=== PATIENT | female | born 1960 | race African-American/Black ===

== ENCOUNTER 2020-01-14 07:55 | Outpatient (CLI) | payer OTHER | END 2020-01-14 07:56 | disposition critical access hospital (66) | LOC: EMS 07:55 | PROVIDERS: ATTEND Surgery | DX: R51 Headache (principal); R03.0 Elevated blood-pressure reading, without diagnosis of hypertension | CPT/HCPCS: A0425; A0429 ==

== ENCOUNTER 2020-01-14 08:13 | Emergency (ER) | payer OTHER ==
[2020-01-14] MEDS ORDERED: SODIUM CHLORIDE 0.9% 1,000 ML IV STA (08:24)
[2020-01-14] MEDS ORDERED: PROCHLORPERAZINE 10 MG/2 ML VIAL IVP STA (08:24)
[2020-01-14] MEDS ORDERED: MORPHINE 2 MG/ML CARPUJECT IVP STA (08:25)
[2020-01-14] MEDS ORDERED: KETOROLAC 15 MG/ML VIAL IVP STA (08:26)
--- NOTE | 2020-01-14 08:27 | ED Physician Documentation ---
PD HPI HEADACHE - Stated complaint Stated Complaint: HUGO - History obtained from History obtained from: Patient, EMS - History of Present Illness Timing - onset: How many hours ago (1), Today Timing - onset during: Rest Timing - duration: Hours (1) Timing - details: Abrupt onset, Still present, Waxing and waning Worst headache ever?: Worst headache ever? (yes) Location: Back Quality: Thunderclap Associated symptoms: Nausea, Vision changes (blurred). No: Fever, Stiff neck, Weakness, Numbness Worsened by: Noise Contributing factors: Hypertension. No: Possible carbon monoxide, Recent illness, Trauma Similar symptoms before: Has not had sx before Recently seen: Not recently seen Review of Systems Constitutional: denies: Fever Nose: denies: Rhinorrhea / runny nose, Congestion Throat: denies: Sore throat Respiratory: denies: Cough Neurologic: denies: Focal weakness, Headache, Head injury PD PAST MEDICAL HISTORY - Past Medical History Cardiovascular: Hypertension (not consistent with her meds) Respiratory: None Neuro: None Endocrine/Autoimmune: None GI: None - Allergies Allergies/Adverse Reactions: Allergies Allergy/AdvReac Type Severity Reaction Status Date / Time Penicillins Allergy Unknown Verified 01/14/20 08:33 Sulfa (Sulfonamide Allergy Unknown Verified 01/14/20 08:33 Antibiotics) PD ED PE NORMAL - Vitals Vital signs reviewed: Yes (hypertensive) - General General: Alert and oriented X 3 (somnolent and uncomfortable), Well developed/nourished, Other - HEENT HEENT: PERRL, EOMI (some light sensitivity) - Neck Neck: Supple, no meningeal sign, No adenopathy - Cardiac Cardiac: RRR, No murmur - Respiratory Respiratory: Clear bilaterally - Abdomen Abdomen: Soft, Non tender - Female Female : Deferred - Rectal Rectal: Deferred - Derm Derm: Normal color, Warm and dry - Extremities Extremities: No tenderness to palpate, Normal ROM s pain, No edema - Neuro Neuro: Alert and oriented X 3 Eye Opening: To Voice Motor: Obeys Commands Verbal: Oriented GCS Score: 14 - Psych Psych: Normal mood. No: Normal affect (somewhat flat) Results - Vitals Vitals: Vital Signs - 24 hr 01/14/20 01/14/20 01/14/20 08:15 09:30 10:28 Temperature 36.4 C L Heart Rate 62 59 L 56 L Respiratory 18 18 14 Rate Blood Pressure 168/85 H 185/96 H 190/104 H O2 Saturation 97 99 100 Oxygen O2 Source Room air - Labs Labs: Laboratory Tests 01/14/20 01/14/20 01/14/20 08:34 08:34 08:34 WBC 4.8 RBC 4.38 Hgb 13.4 Hct 39.9 MCV 91.1 MCH 30.6 MCHC 33.6 RDW 12.9 Plt Count 223 MPV 10.1 Neut # (Auto) 2.9 Lymph # (Auto) 1.4 L Weak[place] # (Auto) 0.4 Eos # (Auto) 0.1 Baso # (Auto) 0.0 Absolute Nucleated RBC 0.00 Nucleated RBC % 0.0 ESR 8 Sodium 136 Potassium 3.2 L Chloride 101 Carbon Dioxide 25 Anion Gap 10.0 BUN 14 Creatinine 0.7 Estimated GFR (MDRD) 86 L Glucose 127 H Calcium 9.0 Total Bilirubin 0.5 AST 25 ALT 22 Alkaline Phosphatase 72 Total Protein 7.3 Albumin 4.2 Globulin 3.1 Albumin/Globulin Ratio 1.4 Lipase 37 PD MEDICAL DECISION MAKING - ED course Complexity details: re-evaluated patient (Patient was given Compazine for nausea and hopefully to help with the headache. Also low-dose of Toradol. She declined morphine. Subsequently given IV acetaminophen. Her blood pressure was elevated and was given labetalol IV without much impact. It did come down from 190s to 175. ), considered differential (Abrupt headache with somnolence in the setting of hypertension, very concerning for hypertensive bleed and will get CT as well as treat her blood pressure), d/w patient ED course: We wanted a better blood pressure with a target of 140. So started nicardipine. Last reading was 156 systolic and improving. She is still sleepy but arousable and able to answer questions well. Maintaining her airway and oxygenation. - Critical Care Time(min): 45 Time Includes: Direct patient care, Reassess patient, Document care, Medical consult Data interpretation: Labs, Pulse ox Departure - Departure Disposition: 02 Transfer Acute Care Hosp Clinical Impression: Subarachnoid hemorrhage, Hypertension Condition: Stable Record reviewed to determine appropriate education?: Yes
[2020-01-14 08:40] LABS: BASOPHILS % (AUTO) 0.6 %; EOSINOPHILS # (AUTO) 0.1 10^3/uL (0.0-0.7); HGB - HEMOGLOBIN 13.4 g/dL (12.0-16.0); LYMPHOCYTES # (AUTO) 1.4 10^3/uL (1.5-3.5); LYMPHOCYTES % (AUTO) 28.8 %; MEAN CORPUSCULAR HEMOGLOBIN 30.6 pg (27.0-31.0); MEAN CORPUSCULAR HGB CONC 33.6 g/dL (32.0-36.0); MEAN CORPUSCULAR VOLUME 91.1 fL (81.0-99.0); MEAN PLATELET VOLUME 10.1 fL (7.9-10.8); MONOCYTES # (AUTO) 0.4 10^3/uL (0.0-1.0); MONOCYTES % (AUTO) 8.1 %; NEUTROPHILS # (AUTO) 2.9 10^3/uL (1.5-6.6); NEUTROPHILS % (AUTO) 61.3 %; PLT - PLATELET COUNT 223 10^3/uL (130-450); RED BLOOD COUNT 4.38 10^6/uL (4.20-5.40); RED CELL DISTRIBUTION WIDTH 12.9 % (12.0-15.0); WHITE BLOOD COUNT 4.8 x10^3/uL (4.8-10.8)
[2020-01-14 08:55] LABS: ALBUMIN 4.2 g/dL (3.2-5.5); ALBUMIN/GLOBULIN RATIO 1.4 (1.0-2.2); BILIRUBIN,TOTAL 0.5 mg/dL (0.2-1.0); CREATININE 0.7 mg/dL (0.4-1.0); TOTAL PROTEIN 7.3 g/dL (6.7-8.2)
[2020-01-14] MEDS ORDERED: IOVERSOL 320 100 ML VIAL IVP ONE ×2 (08:58→17:19)
[2020-01-14] MEDS ORDERED: LABETALOL 20 MG/4 ML SYRINGE IVP STA (09:47)
--- NOTE | 2020-01-14 10:06 | CT Report ---
PROCEDURE: ANGIO HEAD W/WO INDICATIONS: L sided facial droop. The emergency room physician caring for the patient reports that she is visiting from elsewhere, has no available comparison CT studies, and has been off blood pressu re medication recently. CONTRAST: IV CONTRAST: Optiray 320 ml: 80 PO CONTRAST: *NO PO CONTRAST TECHNIQUE: Precontrast 4.5 mm thick angled axial sections acquired from the foramen magnum to the vertex. Afte r the administration of intravenous contrast, 1 mm thick sections acquired through the [place] of [place] is. Postcontrast 4.5 mm thick sections then re-acquired from the foramen magnum to the vertex. 3-di mensional rekehwi-dqeaekjjd-xahkqvernw (MIP) and/or volume rendering reformats were acquired of the c entral intracranial vasculature. For radiation dose reduction, the following was used: automated ex posure control, adjustment of mA and/or kV according to patient size. COMPARISON: None FINDINGS: Image quality: Excellent. Anterior circulation: Intracranial internal carotid arteries are normal in size and flow. The flow within the paired anterior cerebral arteries is normal and symmetric. The flow within the middle cer ebral arteries is normal and symmetric. The anterior communicating artery is seen. No aneurysms are seen. Posterior circulation: Visualized portions of the vertebral arteries demonstrate normal caliber, and join to form a normal appearing basilar artery. Flow within the posterior cerebral arteries is norm al and symmetric. No aneurysms are seen. CSF spaces: Ventricles are normal in size and shape. Basal cisterns are patent. No extra-axial flu id collections but there is extra-axial hemorrhage into the subarachnoid space seen within the fourth ventricle, the basilar cisterns, suprasellar cistern, and the sylvian fissures bilaterally, greater on the left than the right. Brain: No midline shift. No intracranial masses. Esqueda-white matter interface appears intact. Skull and face: Calvarium and facial bones appear intact, without suspicious lesions. Sinuses: Visualized sinuses and mastoids are clear. IMPRESSION: Significant intracranial hemorrhage within the subarachnoid space as discussed above, which by appear ance likely is arterial in origin. The CT angiographic imaging does not visualize an aneurysm, and th e emergency room physician reports no trauma. This may represent a hypertensive hemorrhage not relate d to aneurysm. No appreciable mass effect Note: The emergency room physician was called at initial time of reviewing of the images, approximate ly 10 minutes ago. Reviewed by: Giacomo Martinez MD on 01/14/2020 10:05 AM PDT Approved by: Giacomo Martinez MD on 01/14/2020 10:05 AM PDT Station ID: [id number]
[2020-01-14] MEDS ORDERED: NICARDIPINE HCL 25 MG in SODIUM CHLORIDE 0.9% 240 ML IV STA (10:36)
[2020-01-14] MEDS ORDERED: ACETAMINOPHEN 1,000 MG/100 ML 100 ML IV ONE (10:36)
[2020-01-14 11:32] VITALS: BP 158/79
== END 2020-01-14 11:32 | disposition short-term general hospital (02) ==
LOC: ED 08:13
DX: I60.9 Nontraumatic subarachnoid hemorrhage, unspecified (principal); R40.0 Somnolence; H53.8 Other visual disturbances; R11.0 Nausea; I10 Essential (primary) hypertension; Z91.14 Patient's other noncompliance with medication regimen
CPT/HCPCS: 36415; 70496; 80053; 83690; 85025; 85651; 96365; 96375; 99291; J0131; Q9967